=== PATIENT | male | born 1960 | race Caucasian/White ===

== ENCOUNTER 2024-07-02 15:23 | Emergency (ER) | payer MEDICARE, BC ==
[~2024-07-02] VITALS: Ht 175.3 cm; Wt 86.4 kg
[2024-07-02 15:48] VITALS: PULSE 64
[2024-07-02] MEDS: LIDOcaine 1% W/epiNEPHrine 1:100,000 20ml vial SQ ONE (15:55)
[2024-07-02] MEDS: TETanus/Pertussis (Acell)/Diphther VAC/PF (Tdap-Adult) 0.5ml syringe IMVAC ONE (17:25)
[2024-07-02] MEDS ORDERED: CEPH-585 PO (17:50)
[2024-07-02 18:30] VITALS: BP 180/99; RESP 18; TEMP 98.6; O2SAT 99
== END 2024-07-02 19:56 | disposition home or self-care (01) ==
LOC: ER 15:24
DX: S51.812A Laceration without foreign body of left forearm, initial encounter (principal); F17.200 Nicotine dependence, unspecified, uncomplicated; W01.0XXA Fall on same level from slipping, tripping and stumbling without subsequent striking against object, initial encounter; Y93.89 Activity, other specified; Y92.89 Other specified places as the place of occurrence of the external cause; Y99.8 Other external cause status
CPT/HCPCS: 12002; 90715; 99283; A6402; A6446; A6449; G0008; J7030; Z7610; 90471